=== PATIENT | female | born 1940 | race Two or more races ===

== ENCOUNTER → 2020-08-23 | Day surgery (SDC) | payer BC, MEDICARE ==
[2020-08-21 13:35] LABS: BASOPHILS % 0.4 % (0.0-1.0); EOSINOPHILS # (AUTO) 0.1 (0.0-0.4); EOSINOPHILS % 1.1 % (0.0-6.0); HEMATOCRIT 42.2 % (34.2-44.1); HEMOGLOBIN 13.3 g/dL (12.0-16.0); LYMPHOCYTES # (AUTO) 2.6 (1.0-3.2); LYMPHOCYTES % 36.1 % (18.0-39.1); MEAN CORPUSCULAR HEMOGLOBIN 29.6 pg (28-32); MEAN CORPUSCULAR HGB CONC 31.5 g/dL (31-35); MONOCYTES # (AUTO) 0.7 (0.2-0.8); MONOCYTES % 9.7 % (4.4-11.3); NEUTROPHILS # (AUTO) 3.8 (2.1-6.9); NEUTROPHILS % 52.4 % (38.7-80.0); PLATELET COUNT 341 x10e3/uL (140-360); RED BLOOD COUNT 4.49 x10e6/uL (3.6-5.1); RED CELL DISTRIBUTION WIDTH 12.4 % (11.7-14.4)
[2020-08-21 13:53] LABS: ALANINE AMINOTRANSFERASE 14 IU/L (0-55); ALBUMIN 3.7 g/dL (3.5-5.0); ALBUMIN/GLOBULIN RATIO 1.2 (0.8-2.0); ALKALINE PHOSPHATASE 102 IU/L (40-150); BLOOD UREA NITROGEN 15 mg/dL (7-26); BUN/CREATININE RATIO 18 (6-25); CALCIUM 8.7 mg/dL (8.4-10.2); CARBON DIOXIDE 28 mmol/L (22-29); CHLORIDE 103 mmol/L (98-107); CREATININE, SERUM 0.83 mg/dL (0.57-1.11); EST GLOMERULAR FILTRATION RATE > 60 ML/MIN (60-); GLUCOSE 256 mg/dL (74-118); SODIUM 139 mmol/L (136-145)
[~2020-08-23] MED LIST: APPLE CIDER VI1 EAC1 PO; BUPIVACAINE 0.25% 30ML SDV ONE; CALCIUM600 MG PO; FENTANYL CITRATE/PF 100MCG/2 ML INJ ONE; HEPARIN SOD (PORCINE) 5,000 UNIT/ML VIAL ONE; HYDROCODONE/APAP 5MG-325MG TAB ONE; LIPITOR10 MG PO; POTASSIUM PO; SODIUM CHLORIDE 0.9% 500ML 500 ML ONE; VIT B12 PO; VIT D3 PO
[2020-08-23 11:00] VITALS: BP 126/57
== END | disposition home or self-care (01) ==
LOC: OR 06:14
PROVIDERS: ATTEND Surgery
DX: C50.912 Malignant neoplasm of unspecified site of left female breast (principal); Z90.12 Acquired absence of left breast and nipple; E11.9 Type 2 diabetes mellitus without complications; J45.909 Unspecified asthma, uncomplicated; E78.5 Hyperlipidemia, unspecified; R41.3 Other amnesia; Z01.810 Encounter for preprocedural cardiovascular examination; Z01.812 Encounter for preprocedural laboratory examination; Z01.818 Encounter for other preprocedural examination; Z20.822 Contact with and (suspected) exposure to COVID-19
CPT/HCPCS: 36415; 71046; 77001; 80053; 82948; 85025; 93005; C1751; J1644; J3010; J7040; U0002

== ENCOUNTER 2021-05-17 08:48 | Outpatient (RCR) | payer MEDICARE ==
[~2021-05-17 08:48] MED LIST changes: -BUPIVACAINE 0.25% 30ML SDV ONE; -FENTANYL CITRATE/PF 100MCG/2 ML INJ ONE; -HEPARIN SOD (PORCINE) 5,000 UNIT/ML VIAL ONE; -HYDROCODONE/APAP 5MG-325MG TAB ONE; -SODIUM CHLORIDE 0.9% 500ML 500 ML ONE
== END 2021-06-12 ==
LOC: PT 08:48
PROVIDERS: ATTEND Specialist
DX: M75.42 Impingement syndrome of left shoulder (principal)

== ENCOUNTER → 2022-12-05 | Outpatient (CLI) | payer MEDICARE | LOC: RAD 08:23 | PROVIDERS: ATTEND Family Medicine | DX: R06.02 Shortness of breath (principal); I10 Essential (primary) hypertension | CPT/HCPCS: 93306 ==

== ENCOUNTER 2022-12-23 08:57 | Emergency (ER) | payer MEDICARE ==
[~2022-12-23] VITALS: Ht 172.7 cm; Wt 74.8 kg
[2022-12-23] MEDS ORDERED: ALBUTEROL/IPRATROPIUM 3 ML NEB NEB ONE (09:15)
[2022-12-23 09:16] VITALS: PULSE 87; RESP 14; O2SAT 98
[2022-12-23 09:30] VITALS: PULSE 86; RESP 16; O2SAT 100
== END 2022-12-23 11:54 | disposition home or self-care (01) ==
LOC: ER 09:01
DX: R06.00 Dyspnea, unspecified (principal); I10 Essential (primary) hypertension; F41.9 Anxiety disorder, unspecified; M54.9 Dorsalgia, unspecified; G89.29 Other chronic pain; Z85.3 Personal history of malignant neoplasm of breast
CPT/HCPCS: 71045; 94640; 94799; 99284

== ENCOUNTER → 2024-04-12 | Outpatient (REF) | payer MEDICARE | LOC: RAD 08:24 | PROVIDERS: ATTEND Family Medicine | DX: R07.9 Chest pain, unspecified (principal) | CPT/HCPCS: 93306 ==